=== PATIENT | female | born 1970 | race Caucasian/White ===

== ENCOUNTER 2024-06-22 06:37 | Outpatient (CLI) | payer OTHER ==
[2024-06-22 07:27] LABS: HEMATOCRIT 35.6 % (36.0-45.00); HEMOGLOBIN 12.4 g/dL (12.0-15.00); MEAN CELL VOLUME 86.7 fL (80.00-100.00); MEAN CORPUSCULAR HEMOGLOBIN 30.2 pg (27.00-32.0); MEAN CORPUSCULAR HGB CONC 34.8 g/dl (32.0-36.0); PLATELET COUNT 317 K/uL (150-450); RED CELL DISTRIBUTION WIDTH 14.3 % (11.5-14.5)
[2024-06-22 08:58] LABS: ALBUMIN 3.5 gm/dL (3.4-5.0); BILIRUBIN TOTAL 0.33 mg/dL (0.3-1.2); CALCIUM 8.8 mg/dL (8.5-10.1); CHOL HDL RATIO 3.7 (0-5.0); CREATININE SERUM 0.83 mg/dL (0.55-1.02); FREE TRIODOTIRONINE 2.27 pg/ml (2.18-3.98); GFR 71.64; GLOBULINA 3.6 G/DL (2.4-3.5); POTASSIUM 4.76 mEq/L (3.5-5.1); T4 FREE 0.83 NG/ML (0.76-1.46); TOTAL PROTEIN 7.1 gm/dL (6.4-8.2)
[2024-06-22 08:59] LABS: TSH 5.57 uIU/mL (0.358-3.74)
== END 2024-06-22 06:46 | disposition home or self-care (01) ==
LOC: LAB 06:37
PROVIDERS: ATTEND Internal Medicine
DX: E03.9 Hypothyroidism, unspecified (principal); E55.9 Vitamin D deficiency, unspecified; Z12.11 Encounter for screening for malignant neoplasm of colon; E78.9 Disorder of lipoprotein metabolism, unspecified; R73.9 Hyperglycemia, unspecified

== ENCOUNTER 2024-07-09 08:17 | Outpatient (CLI) | payer OTHER ==
[2024-07-10 08:08] LABS: HEPATITIS A ANTIBODY IGG Negative (Negative); HEPATITIS B SURFACE ANTIBODY Reactive (.); HEPATITIS C VIRUS ANTIBODY Non Reactive (Non Reactive)
== END 2024-07-09 08:18 | disposition home or self-care (01) ==
LOC: LAB 08:17
DX: A64 Unspecified sexually transmitted disease (principal); B17.9 Acute viral hepatitis, unspecified

== ENCOUNTER 2024-08-27 06:28 | Outpatient (CLI) | payer OTHER ==
[2024-08-27 07:27] LABS: HEMATOCRIT 36.8 % (36.0-45.00); HEMOGLOBIN 12.5 g/dL (12.0-15.00); MEAN CELL VOLUME 86.8 fL (80.00-100.00); MEAN CORPUSCULAR HEMOGLOBIN 29.4 pg (27.00-32.0); MEAN CORPUSCULAR HGB CONC 33.9 g/dl (32.0-36.0); PLATELET COUNT 305 K/uL (150-450); RED BLOOD COUNT 4.24 M/uL (4.00-6.00); RED CELL DISTRIBUTION WIDTH 13.4 % (11.5-14.5)
[2024-08-27 07:30] LABS: PH,URINE 5.5 (5.0-8.0); URINE APPEARANCE Clear; URINE BILIRRUBIN Negative (NEGATIVE); URINE BLOOD Trace; URINE COLOR Yellow; URINE GLUCOSE Negative (NEGATIVE); URINE KETONE Negative (NEGATIVE); URINE LEUKOCYTE Negative; URINE NITRATE Negative; URINE PROTEIN Negative (NEGATIVE); URINE UROBILINOGEN 0.2 E.U./dl
[2024-08-27 07:32] LABS: URINE BACTERIA 979.1 uL (0.0-1933); URINE EPITHELIAL CELLS 46.3 uL (0.0-38.8); URINE RBC 6.7 uL (0.0-20.8); URINE WBC 15.9 uL (0.0-23.2)
[2024-08-27 07:49] LABS: URINE CAST 0.29 uL (0.0-1.40)
[2024-08-27 08:32] LABS: ALBUMIN 3.3 gm/dL (3.4-5.0); BILIRUBIN TOTAL 0.38 mg/dL (0.3-1.2); CALCIUM 8.8 mg/dL (8.5-10.1); CHOL HDL RATIO 3.4 (0-5.0); CREATININE SERUM 0.82 mg/dL (0.55-1.02); FREE TRIODOTIRONINE 2.82 pg/ml (2.18-3.98); GFR 72.38; GLOBULINA 3.5 G/DL (2.4-3.5); POTASSIUM 4.63 mEq/L (3.5-5.1); T4 TOTAL 7.29 UG/DL (4.8-13.9); TOTAL PROTEIN 6.8 gm/dL (6.4-8.2)
[2024-08-27 08:34] LABS: C-REACTIVE PROTEIN 0.92 MG/DL (0.00-0.29)
[2024-08-27 08:35] LABS: TSH 7.86 uIU/mL (0.358-3.74)
== END 2024-08-27 06:32 | disposition home or self-care (01) ==
LOC: LAB 06:28
PROVIDERS: ATTEND Internal Medicine
DX: E55.9 Vitamin D deficiency, unspecified (principal); Z00.00 Encounter for general adult medical examination without abnormal findings; Z13.1 Encounter for screening for diabetes mellitus; E78.9 Disorder of lipoprotein metabolism, unspecified; Z12.11 Encounter for screening for malignant neoplasm of colon; Z13.29 Encounter for screening for other suspected endocrine disorder

== ENCOUNTER 2024-10-10 07:00 | Outpatient (CLI) | payer OTHER ==
[2024-10-10 08:53] LABS: ALBUMIN 3.6 gm/dL (3.4-5.0); BILIRUBIN TOTAL 0.46 mg/dL (0.3-1.2); CALCIUM 9.3 mg/dL (8.5-10.1); CREATININE SERUM 0.9 mg/dL (0.55-1.02); GLOBULINA 3.3 G/DL (2.4-3.5); POTASSIUM 4.76 mEq/L (3.5-5.1); T4 FREE 1.06 NG/ML (0.76-1.46); TOTAL PROTEIN 6.9 gm/dL (6.4-8.2)
[2024-10-10 08:54] LABS: TSH 6.86 uIU/mL (0.358-3.74)
== END 2024-10-10 07:04 | disposition home or self-care (01) ==
LOC: LAB 07:00
PROVIDERS: ATTEND Internal Medicine
DX: E03.8 Other specified hypothyroidism (principal); I10 Essential (primary) hypertension; E55.9 Vitamin D deficiency, unspecified

== ENCOUNTER 2024-11-27 23:59 | Emergency (ER) | payer OTHER ==
[~2024-11-27] VITALS: Ht 167.6 cm; Wt 80.7 kg
[2024-11-28] MEDS ORDERED: KETOROLAC TROMETHAMINE 60 MG VIAL IM STA (02:55)
[2024-11-28] MEDS ORDERED: ORPHENADRINE CITRATE 30 MG/ML AMPUL IM STA (02:55)
[2024-11-28] MEDS ORDERED: ORPHENADRINE CITRATE 30 MG/ML AMPUL ONE (03:02)
[2024-11-28] MEDS ORDERED: KETOROLAC TROMETHAMINE 60 MG VIAL IM ONE (03:03)
[2024-11-28] MEDS ORDERED: KETO10TA2 PO (04:40)
[2024-11-28] MEDS ORDERED: NORFLEX100MG PO (04:40)
== END 2024-11-28 04:47 ==
LOC: ER 11-28 00:03
DX: M62.838 Other muscle spasm (principal)

== ENCOUNTER 2024-12-05 07:47 | Outpatient (CLI) | payer OTHER ==
[~2024-12-05 07:47] MED LIST: KETO10TA2 PO; NORFLEX100MG PO
== END 2024-12-05 07:49 | disposition home or self-care (01) ==
LOC: NUCLEAR 07:47
PROVIDERS: ATTEND Internal Medicine
DX: R53.83 Other fatigue (principal); E66.9 Obesity, unspecified

== ENCOUNTER 2024-12-08 07:48 | Outpatient (CLI) | payer OTHER ==
[2024-12-08 09:03] LABS: BASO % 0.8 % (0.1-1.2); EOS % 2.1 % (0.7-7.0); HEMOGLOBIN 12.2 g/dL (11.2-15.7); LYMPH # 2.07 (1.18-3.74); LYMPH % 42.9 % (19.3-53.1); MEAN CORPUSCULAR HEMOGLOBIN 28.8 pg (25.6-32.2); MONO # 0.33 (0.24-0.82); MONO % 6.8 % (4.7-12.5); NEUT # 2.28 (1.56-6.13); NEUT % 47.2 % (34.0-71.1); PLATELET COUNT 383 K/uL (163-369); RED BLOOD COUNT 4.24 M/uL (3.93-5.22); RED CELL DISTRIBUTION WIDTH 13.1 % (11.6-14.4)
[2024-12-08 10:02] LABS: ALBUMIN 3.7 gm/dL (3.4-5.0); BILIRUBIN TOTAL 0.32 mg/dL (0.3-1.2); CALCIUM 9.3 mg/dL (8.5-10.1); CHOL HDL RATIO 3.7 (0-5.0); CREATININE SERUM 0.89 mg/dL (0.55-1.02); FREE TRIODOTIRONINE 2.4 pg/ml (2.18-3.98); GFR 65.85; GLOBULINA 3.5 G/DL (2.4-3.5); POTASSIUM 4.67 mEq/L (3.5-5.1); T4 TOTAL 9.66 UG/DL (4.8-13.9); TOTAL PROTEIN 7.2 gm/dL (6.4-8.2); TSH 3.77 uIU/mL (0.358-3.74)
== END 2024-12-08 07:53 | disposition home or self-care (01) ==
LOC: LAB 07:48
PROVIDERS: ATTEND Internal Medicine
DX: E55.9 Vitamin D deficiency, unspecified (principal); Z00.00 Encounter for general adult medical examination without abnormal findings; Z13.1 Encounter for screening for diabetes mellitus; E78.9 Disorder of lipoprotein metabolism, unspecified; Z13.29 Encounter for screening for other suspected endocrine disorder